=== PATIENT | male | born 1975 | race Caucasian/White ===

== ENCOUNTER 2019-09-13 11:54 | Emergency (ER) | payer OTHER ==
[2019-09-13 13:25] LABS: Absolute Lymphocytes (CBC) 1.3 K/uL (0.7-4.9); Basophils % 0.7 % (0-1.3); Hematocrit 40.7 % (39.6-49.0); Lymphocytes % 22.9 % (15.3-44.8); MPV 7.5 fL (7.6-11.3); RBC Red Blood Cell Count 4.27 M/uL (4.33-5.43)
[2019-09-13 13:39] LABS: ALT/SGPT 60 U/L (12-78); AST/SGOT 117 U/L (15-37); Alkaline Phosphatase 55 U/L (45-117); BUN Blood Urea Nitrogen 15 mg/dL (7-18); Bicarbonate 26 mmol/L (21-32); Bilirubin Direct < 0.1 mg/dL (0-0.2); Bilirubin Total 0.3 mg/dL (0.2-1.0); Glucose Level 101 mg/dL (74-106); Magnesium 2.1 mg/dL (1.8-2.4); NT PRO-BNP 30 pg/mL (<125); Potassium 4.3 mmol/L (3.5-5.1); Protein, Total 7.9 g/dL (6.4-8.2); Sodium Level 139 mmol/L (136-145); Troponin (Emerg Dept Use Only) < 0.02 ng/mL (0.0-0.045)
[2019-09-13 13:48] LABS: Protime INR 0.84
--- NOTE | 2019-09-13 13:54 | RAD REPORT ---
EXAM DESCRIPTION: RAD - Chest Single View - 09/13/2019 1:37 pm CLINICAL HISTORY: Left-sided chest pain COMPARISON: None. TECHNIQUE: AP portable chest image was obtained 1317 hours . FINDINGS: Lungs are clear. Heart and vasculature are normal. No measurable pleural effusion and no p neumothorax. No acute bony abnormality seen. No acute aortic findings suspected. IMPRESSION: No acute cardiopulmonary process.
--- NOTE | 2019-09-13 15:35 | EKG ---
Test Date: 2019-09-13 Test Time: 12:04:21 Platen Drier Operator: SOLITARIO MEASUREMENT RESULTS: Intervals: Rate: 58 MT: 164 QRSD: 80 QT: 390 QTc: 382 [place]: P: 27 MT: 164 QRS: 13 T: 20 INTERPRETIVE STATEMENTS: Sinus bradycardia Otherwise normal ECG No previous ECG available for comparison Electronically Signed On 09-13-19 15:34:17 SOUND DESIGNER by Blaine Israel
--- NOTE | 2019-09-13 16:16 | EDPHYS ---
Physician Documentation [facility] Name: Clifford Ramos Age: 44 yrs Sex: Male : 1975 Arrival Date: 09/13/2019 Time: 11:55 Bed 18 Private MD: ED Physician Cassius Kearney HPI: 09/13 13:10 This 44 yrs old Male presents to ER via Ambulatory with complaints of Chest jr8 Pain, Neck Pain, <24hrs Old, Palpitations. 13:10 The patient or guardian reports chest pain that is located primarily in the substernal jr8 area. Onset: acutely, today. The pain radiates to left neck. Associated signs and symptoms: Pertinent positives: palpitations. The chest pain is described as a pressure. Duration: The patient or guardian reports a single episode, that is still ongoing, but improving. Modifying factors: The symptoms are alleviated by nothing. the symptoms are aggravated by nothing. Severity of pain: At its worst the pain was moderate in the emergency department the pain has improved markedly. The patient has not experienced similar symptoms in the past. The patient has not recently seen a physician. Patient stated that he was walking when he had a sing palpitation followed by sudden pressure in chest that radiated to left neck . Historical: - Allergies: 11:58 No Known Allergies; aa5 - Home Meds: 11:58 None [Active]; aa5 - PMHx: 11:58 None; aa5 - PSHx: 11:58 eye; R shoulder; aa5 - Immunization history:: Flu vaccine is not up to date. - Social history:: Smoking status: Patient uses tobacco products, smokes one-half pack cigarettes per day. - Ebola Screening: : No symptoms or risks identified at this time. ROS: 13:10 Eyes: Negative for injury, pain, redness, and discharge, ENT: Negative for injury, jr8 pain, and discharge, Neck: Negative for injury, pain, and swelling, Abdomen/GI: Negative for abdominal pain, nausea, vomiting, diarrhea, and constipation, Back: Negative for injury and pain, MS/Extremity: Negative for injury and deformity, Skin: Negative for injury, rash, and discoloration, Neuro: Negative for headache, weakness, numbness, tingling, and seizure. 13:10 Cardiovascular: Positive for chest pain, palpitations. 13:10 Respiratory: Positive for shortness of breath. Exam: 13:10 Eyes: Pupils equal round and reactive to light, extra-ocular motions intact. Lids and jr8 lashes normal. Conjunctiva and sclera are non-icteric and not injected. Cornea within normal limits. Periorbital areas with no swelling, redness, or edema. ENT: Nares patent. No nasal discharge, no septal abnormalities noted. Tympanic membranes are normal and external auditory canals are clear. Oropharynx with no redness, swelling, or masses, exudates, or evidence of obstruction, uvula midline. Mucous membranes moist. Neck: Trachea midline, no thyromegaly or masses palpated, and no cervical lymphadenopathy. Supple, full range of motion without nuchal rigidity, or vertebral point tenderness. No Meningismus. Cardiovascular: Regular rate and rhythm with a normal S1 and S2. No gallops, murmurs, or rubs. Normal PMI, no JVD. No pulse deficits. Respiratory: Lungs have equal breath sounds bilaterally, clear to auscultation and percussion. No rales, rhonchi or wheezes noted. No increased work of breathing, no retractions or nasal flaring. Abdomen/GI: Soft, non-tender, with normal bowel sounds. No distension or tympany. No guarding or rebound. No evidence of tenderness throughout. Back: No spinal tenderness. No costovertebral tenderness. Full range of motion. Skin: Warm, dry with normal turgor. Normal color with no rashes, no lesions, and no evidence of cellulitis. MS/ Extremity: Pulses equal, no cyanosis. Neurovascular intact. Full, normal range of motion. Neuro: Awake and alert, GCS 15, oriented to person, place, time, and situation. Cranial nerves II-XII grossly intact. Motor strength 5/5 in all extremities. Sensory grossly intact. Cerebellar exam normal. Normal gait. Vital Signs: 11:59 BP 140 / 91; Pulse 65; Resp 18 S; Temp 98.0(TE); Pulse Ox 98% on R/A; Weight 86.18 kg aa5 (R); Height 5 ft. 10 in. (177.80 cm) (R); Pain 5/10; 13:00 BP 136 / 86; Pulse 51; Resp 15; Pulse Ox 99% on R/A; hb 14:06 BP 139 / 87; Pulse 49; Resp 15; Pulse Ox 99% on R/A; Pain 3/10; hb 11:59 Body Mass Index 27.26 (86.18 kg, 177.80 cm) aa5 MDM: 12:54 Patient medically screened. jr8 16:13 MARIA ANTONIA Risk Score: 1 - Recent [<24hrs] Severe Angina, TOTAL SCORE = 1. Data reviewed: [facility] vital signs, nurses notes, lab test result(s), EKG, radiologic studies, plain films. Data interpreted: Pulse oximetry: on room air is 99 %. Interpretation: normal. Counseling: I had a detailed discussion with the patient and/or guardian regarding: the historical points, exam findings, and any diagnostic results supporting the discharge/admit diagnosis, lab results, radiology results, the need for outpatient follow up, a medicare sales executive, to return to the emergency department if symptoms worsen or persist or if there are any questions or concerns that arise at home. ED course: Patient without any pain at this time. X 2 troponin's, both of which are negative. Will d/c home to f/u with Cardiology in next couple of days. If he were to have pain again to immediately come back for reevaluation and admission . 09/13 12:54 Order name: Basic Metabolic Panel; Complete Time: 13:41 09/13 12:54 Order name: CBC with Diff; Complete Time: 13:30 09/13 12:54 Order name: LFT's; Complete Time: 13:41 09/13 12:54 Order name: Magnesium; Complete Time: 13:41 09/13 12:54 Order name: NT PRO-BNP; Complete Time: 13:41 09/13 12:54 Order name: PT-INR; Complete Time: 14:03 09/13 12:54 Order name: Troponin (emerg Dept Use Only); Complete Time: 13:41 09/13 12:54 Order name: XRAY Chest (1 view); Complete Time: 14:03 09/13 12:54 Order name: EKG; Complete Time: 12:55 09/13 12:54 Order name: Cardiac monitoring; Complete Time: 13:09 09/13 12:54 Order name: EKG - Nurse/Tech; Complete Time: 13:09 09/13 12:54 Order name: IV Saline Lock; Complete Time: 13:09/13 12:54 Order name: Labs collected and sent; Complete Time: 09/13 15:15 Order name: Troponin (emerg Dept Use Only); Complete Time: 16:09/13 12:54 Order name: O2 Per Protocol; Complete Time: :09/13 12:54 Order name: O2 Sat Monitoring; Complete Time: : Administered Medications: No medications were administered Disposition: 09/13/19 16:15 Discharged to Home. Impression: Chest pain, unspecified, Palpitations. - Condition is Stable. - Discharge Instructions: Nonspecific Chest Pain, Palpitations. - Medication Reconciliation Form, Thank You Letter, Antibiotic Education, Prescription Opioid Use form. - Follow up: Jorgito Rubio MD; When: 2 - 3 days; Reason: Recheck today's complaints, Continuance of care, Re-evaluation by your physician. - Problem is new. - Symptoms are resolved. Addendum: 09/16/2019 08:21 Co-signature as Attending Physician, Cassius Kearney MD I agree with the assessment and c abdullahi plan of care. Signatures: Dispatcher [employer] EDAR Cassius Kearney MD MD cha Calderon, Audri, RN RN aa5 Gordon Zambrano PA PA jr8 Lakeisha Dickinson, CIERRA RN hb Corrections: (The following items were deleted from the chart) 09/13 16:59 16:15 09/13/2019 16:15 Discharged to Home. Impression: Chest pain, unspecified; hb Palpitations. Condition is Stable. Forms are Medication Reconciliation Form, Thank You Letter, Antibiotic Education, Prescription Opioid Use. Follow up: Jorgito Rubio; When: 2 - 3 days; Reason: Recheck today's complaints, Continuance of care, Re-evaluation by your physician. Problem is new. Symptoms are resolved. jr8
--- NOTE | 2019-09-13 16:16 | ER ---
Nurse's Notes [facility] Name: Clifford Ramos Age: 44 yrs Sex: Male : 1975 Arrival Date: 09/13/2019 Time: 11:55 Bed 18 Private MD: Diagnosis: Chest pain, unspecified;Palpitations Presentation: 09/13 11:58 Presenting complaint: Patient states: "I was just walking and started having chest aa5 pain". Pt reports left sided chest pain and SOB that began just ANIMAL STICKER. Transition of care: patient was not received from another setting of care. Onset of symptoms was September 13, 2019. Risk Assessment: Do you want to hurt yourself or someone else? Patient reports no desire to harm self or others. Initial Sepsis Screen: Does the patient meet any 2 criteria? No. Patient's initial sepsis screen is negative. Does the patient have a suspected source of infection? No. Patient's initial sepsis screen is negative. Care prior to arrival: None. 11:58 Acuity: JOANNA 3 aa5 11:58 Method Of Arrival: Ambulatory aa5 Historical: - Allergies: 11:58 No Known Allergies; aa5 - Home Meds: 11:58 None [Active]; aa5 - PMHx: 11:58 None; aa5 - PSHx: 11:58 eye; R shoulder; aa5 - Immunization history:: Flu vaccine is not up to date. - Social history:: Smoking status: Patient uses tobacco products, smokes one-half pack cigarettes per day. - Ebola Screening: : No symptoms or risks identified at this time. Screenin:00 Abuse screen: Denies threats or abuse. Denies injuries from another. Nutritional hb screening: No deficits noted. Tuberculosis screening: No symptoms or risk factors identified. Fall Risk None identified. Assessment: 13:00 General: Appears in no apparent distress. Behavior is calm, cooperative. Pain: hb Complains of pain in chest Pain radiates to left arm and neck Pain currently is 5 out of 10 on a pain scale. Pain began suddenly. Neuro: Level of Consciousness is awake, alert, obeys commands, Oriented to person, place, time, situation. Cardiovascular: Heart tones S1 S2 present Capillary refill < 3 seconds Patient's skin is warm and dry. Respiratory: Airway is patent Respiratory effort is even, unlabored, Respiratory pattern is regular, symmetrical, Breath sounds are clear bilaterally. GI: No signs and/or symptoms were reported involving the gastrointestinal system. : No signs and/or symptoms were reported regarding the genitourinary system. EENT: No signs and/or symptoms were reported regarding the EENT system. Derm: Skin is pink, warm \\T\\ dry. Musculoskeletal: No signs and/or symptoms reported regarding the musculoskeletal system. 14:00 Reassessment: Patient appears in no apparent distress at this time. Patient and/or hb family updated on plan of care and expected duration. Pain level reassessed. Patient is alert, oriented x 3, equal unlabored respirations, skin warm/dry/pink. Vital Signs: 11:59 BP 140 / 91; Pulse 65; Resp 18 S; Temp 98.0(TE); Pulse Ox 98% on R/A; Weight 86.18 kg aa5 (R); Height 5 ft. 10 in. (177.80 cm) (R); Pain 5/10; 13:00 BP 136 / 86; Pulse 51; Resp 15; Pulse Ox 99% on R/A; hb 14:06 BP 139 / 87; Pulse 49; Resp 15; Pulse Ox 99% on R/A; Pain 3/10; hb 11:59 Body Mass Index 27.26 (86.18 kg, 177.80 cm) aa5 ED Course: 11:55 Patient arrived in ED. as 11:58 Arm band placed on. aa5 11:59 Triage completed. aa5 12:02 EKG completed in triage. Results shown to MD. aa5 12:54 Gordon Zambrano PA is PHCP. jr8 12:54 Cassius Kearney MD is Attending Physician. jr8 13:00 Patient has correct armband on for positive identification. Placed in gown. Bed in low hb position. Call light in reach. Side rails up X 1. property assessment monitor on. Pulse ox on. NIBP on. 13:02 Inserted saline lock: 20 gauge in right antecubital area, using aseptic technique. hb Blood collected. Patient maintains SpO2 saturation greater than 95% on room air. 13:03 Lakeisha Dickinson, RN is Primary Nurse. hb 13:38 XRAY Chest (1 view) In Process Unspecified. EDMS 15:29 Troponin (emerg Dept Use Only) Sent. ss 16:15 Baradhi, Jorgito, MD is Referral Physician. jr8 16:35 IV discontinued, intact, bleeding controlled, No redness/swelling at site. Pressure hb dressing applied. 16:35 No provider procedures requiring assistance completed. hb Administered Medications: No medications were administered Outcome: 16:15 Discharge ordered by MD. jr8 16:35 Discharged to home ambulatory, with significant other. hb 16:35 Condition: stable hb 16:35 Discharge instructions given to patient, significant other, Instructed on discharge instructions, follow up and referral plans. medication usage, Demonstrated understanding of instructions, follow-up care, medications. 16:59 Patient left the ED. hb Signatures: Dispatcher [employer] EDMS Wilma Banda Audri, RN RN aa5 Marilyn Appiah RN RN Gordon Zambrano PA PA jr8 Lakeisha Dickinson, CIRERA RN hb
[2019-09-13 17:52] VITALS: TEMP 98
[2019-09-13 17:54] VITALS: O2SAT 99
[2019-09-13 17:55] VITALS: BP 139/87
== END 2019-09-13 16:59 | disposition home or self-care (01) ==
LOC: ER 11:54
DX: R00.2 Palpitations (principal); F17.210 Nicotine dependence, cigarettes, uncomplicated
CPT/HCPCS: 36415; 71045; 80048; 80076; 83735; 83880; 84484; 85025; 85610; 93005; 99285

== ENCOUNTER 2022-11-02 07:27 | Day surgery (SDC) | payer BC ==
[2022-11-01 09:43] LABS: Absolute Lymphocytes (CBC) 1.5 K/uL (0.7-4.9); Hematocrit 38.4 % (39.6-49.0); Lymphocytes % 22.2 % (15.3-44.8); MCV 97.2 fL (80-100); MPV 6.7 fL (7.6-11.3); RBC Red Blood Cell Count 3.96 M/uL (4.33-5.43)
[2022-11-01 10:00] LABS: Potassium 3.8 mmol/L (3.5-5.1)
--- NOTE | 2022-11-01 12:48 | EKG ---
Test Date: 2022-11-01 Test Time: 09:25:26 Director Audience Marketing: ANTHONY MEASUREMENT RESULTS: Intervals: Rate: 77 NV: 172 QRSD: 94 QT: 358 QTc: 405 [place]: P: 58 NV: 172 QRS: -18 T: 73 INTERPRETIVE STATEMENTS: Normal sinus rhythm Normal ECG Compared to ECG 09/13/2019 12:04:21 Sinus bradycardia no longer present Electronically Signed On 11-01-22 12:47:40 MONOGRAM TECHNICIAN by Godfrey Landry
--- NOTE | 2022-11-01 13:10 | RAD REPORT ---
[facility]AM DES[facility]01/2022 9:43 am CLINICAL HISTORY: pre op cyst removal COMPARISON: Chest Pa And Lat (2 Views) dated 01/26/2021; Chest Single View dated 09/13/2019 TECHNIQUE: PA and lateral views of the chest. FINDINGS: The lungs are clear. No pneumothorax or effusion. The cardiomediastinal contours are unrem arkable. IMPRESSION: No acute cardiopulmonary process.
[2022-11-02] MEDS ORDERED: Ringers Lactate 1,000 ML IV ONE (07:40)
[2022-11-02] MEDS ORDERED: FENTANYL CITR 100 MCG/2 ML ONE (08:29)
[2022-11-02] MEDS ORDERED: propofoL 200 MG/20 ML VIAL IV ONE (08:31)
[2022-11-02] MEDS ORDERED: MIDAZOLAM HCL 2 MG/2 ML INJ ONE (08:31)
[2022-11-02] MEDS ORDERED: LIDOCAINE 2% MPF 5 ML VIAL ONE (08:31)
[2022-11-02] MEDS ORDERED: ONDANSETRON 4 MG/2 ML VIAL ONE (08:32)
[2022-11-02] MEDS: CEFAZOLIN SODIUM 1 GM/VIAL ONE ×2 (09:20→09:30)
--- NOTE | 2022-11-02 10:34 | P.BOP ---
Preoperative diagnosis: infected subQ mass on the scrotum Postoperative diagnosis: same Primary procedure: Excisional biospy of infected subQ mass on the scrotum 3x3cm Estimated blood loss: <10cc Specimen: mass Findings: see dicta Anesthesia: General Complications: None Transferred to: Recovery Room Condition: Good
[2022-11-02] MEDS ORDERED: HYDROCODONE/APAP 5/325 MG TAB ONE (10:57)
[2022-11-02 13:13] VITALS: BP 130/91; TEMP 97.5; O2SAT 99
--- NOTE | 2022-11-02 22:29 | OP ---
Date of Procedure: 11/02/2022 Surgeon: Patel Banda MD Preoperative Diagnosis: Infected subcutaneous mass in the scrotum. Postoperative Diagnosis: Infected subcutaneous mass in the scrotum. Procedure: Excisional biopsy of infected subcutaneous mass in the scrotum, 3 x 3 cm. Estimated Blood Loss: Less than 10 cc. Findings: The patient has a subcutaneous mass in the wall of that scrotum, does not go inside the sc rotum and does not seem to be connected to any other structure inside the scrotum. Anesthesia: General plus local. Complications: None. Indications: This is a case of a 47-year-old patient who comes to us with a scrotal mass infected on and off. The patient is seen by the primary doctor, found to have the mass not inside the scrotum, but in the subcutaneous tissue of the scrotal wall, so a surgical consult was obtained for excision s benny on and off, it is getting infected. The benefits, alternatives, and risks of excision were full y explained which include, but not limited to infection, bleeding, damage to adjacent structures, ane sthesia complication, recurrence, DC, and even . He also understands this may not relieve any s ymptoms and he might need more than one surgical intervention. He understood, signed a consent. The area of concern was marked by me and the patient in the holding room. Procedure In Detail: The patient was brought to the OR and placed in supine position. Anesthesia wa s given without complication. A time-out was called. The scrotal area was prepped and draped in the usual sterile fashion. Local anesthetic was applied followed by a wedge incision on the skin. Inci esmer was carried down to the subcutaneous tissue. This seems to be on the scrotal wall. We were abl e to delineate that area, remove the mass and then irrigated the subcutaneous area, closed the subcut aneous area with 3-0 chromic and the skin with nylon. Sponge count and instrument counts were correc t. Specimen sent for pathology evaluation. The area was covered with sterile dressings. The patien t was sent to recovery in stable condition. MABEL/MODL Voice ID: [id number] Report ID: [id number]
--- NOTE | 2022-11-02 22:35 | DS ---
Date of Discharge: 11/02/2022 Diagnosis: Infected subcutaneous mass in the scrotum. Procedure: Excisional biopsy of infected scrotal subcutaneous mass. Disposition: Home. Discharge Instructions: Keep the area dry for 24 hours then after that, clean with soap and water. Apply triple antibiotics and gauze. Use scrotal support. We will see the patient in my office in a week. SUDARSHAN Voice ID: [id number] Report ID: [id number]
== END 2022-11-02 11:45 | disposition home or self-care (01) ==
LOC: OR 07:27
PROVIDERS: ATTEND Surgery
PROC: 0VB50ZZ Excision of Scrotum, Open Approach (ICD-10-PCS; principal; 2022-11-02 09:15)
DX: L72.0 Epidermal cyst (principal); F17.210 Nicotine dependence, cigarettes, uncomplicated
CPT/HCPCS: 93005; 85025; 80048; 36415; 88305; 71046; 55899; J2704; J2001; J2250; J3010; J7120; J2405; J0690; 88304

== ENCOUNTER → 2023-11-01 | Emergency (ER) | payer BC ==
[~2023-11-01] MED LIST: LIDOCAINE 1% 20 ML MDV ONE
--- NOTE | 2023-11-01 19:45 | RAD REPORT ---
EXAM DESCRIPTION: RAD - Hand Left 3 View - 11/01/2023 7:30 pm CLINICAL HISTORY: PAIN COMPARISON: No comparisons FINDINGS: Soft tissue swelling is seen along the posterior aspect of the hand. No foreign body. No s oft tissue gas.
--- NOTE | 2023-11-01 20:16 | EDPHYS ---
Physician Documentation [facility] Name: Clifford Ramos Age: 48 yrs Sex: Male : 1975 Arrival Date: 11/01/2023 Time: 17:31 Bed 13 Private MD: Petr Garcia B ED Physician Padma Reyna HPI: 11/01 20:17 This 48 yrs old Male presents to ER via Wheelchair with complaints of Laceration To kb Hand. 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 Historical: - Allergies: 18:46 No Known Allergies; bp - Immunization history:: Adult Immunizations unknown. - Social history:: Smoking status: Patient denies any tobacco usage or history of. ROS: 20:15 Constitutional: Negative for fever, chills, and weight loss, kb 20:15 Skin: Positive for laceration(s), swelling, of the dorsum of left hand, 20:15 All other systems are negative, Exam: 20:16 Constitutional: This is a well developed, well nourished patient who is awake, alert, kb and in no acute distress. Head/Face: Normocephalic, atraumatic. ENT: Moist Mucous membranes Cardiovascular: Regular rate Respiratory: Respirations even and unlabored. No increased work of breathing. Talking in full sentences MS/ Extremity: Pulses equal, no cyanosis. Neurovascular intact. Full, normal range of motion. Neuro: Awake and alert, GCS 15, oriented to person, place, time, and situation. Moves all extremities. Normal gait. 20:16 Skin: injury, laceration(s), the wound is approximately 3 cm(s), of the dorsum of left hand, that can be described as clean, no foreign body, linear, with moderate bleeding, Vital Signs: 18:54 BP 141 / 83; Pulse 81; Resp 18; Temp 97.5(TE); Pulse Ox 97% on R/A; ld1 18:54 Pain 9/10; ld1 18:54 Pain Scale: Adult ld1 Laceration: 20:13 Wound Repair of 3cm ( 1.2in ) subcutaneous laceration to left hand. Linear shaped.. kb Distal neuro/vascular/tendon intact. Anesthesia: Local anesthetic administered with 2 mls of 1% lidocaine. Wound prep: Extensive cleansing with hibiclenz by me, Wound irrigation with saline by me. Skin closed with 6 4-0 Prolene using simple sutures and sterile technique. Patient tolerated well. MDM: 17:36 Patient medically screened. kb 20:16 Differential diagnosis: superficial laceration, tendon injury, vascular injury. Data kb reviewed: vital signs, nurses notes. Management of patient was discussed with the following: Dr Reyna. Counseling: I had a detailed discussion with the patient and/or guardian regarding the historical points, exam findings, and any diagnostic results supporting the discharge/admit diagnosis, radiology results, the need for outpatient follow up, a family practitioner, to return to the emergency department if symptoms worsen or persist or if there are any questions or concerns that arise at home. 20:16 ED course: Full ROM of all fingers, full sensation. Bleeding controlled after sutures kb placed. 11/01 17:57 Order name: Hand Left 3 View XRAY; Complete Time: 19:53 kb 11/01 19:04 Order name: Dressing - Wound; Complete Time: 19:49 kb 11/01 19:04 Order name: Gloves, Sterile; Complete Time: 19:49 kb 11/01 19:04 Order name: Prolene, Sutures; Complete Time: 19:49 kb 11/01 19:04 Order name: Setup Suture Tray; Complete Time: 19:49 kb Administered Medications: 20:23 Drug: Lidocaine Infiltration (1 %) 1 vials 5 ml Infiltration once; to bedside {Note: rv administered by Sybil SON.} Volume: 5 ml; Route: Infiltration; Disposition Summary: 11/01/23 20:15 Discharge Ordered Notes: Location: Home kb Condition: Stable kb Diagnosis - Laceration without foreign body of left hand kb Followup: kb - With: Emergency Department - When: As needed - Reason: Worsening of condition Followup: kb - With: Private Physician - When: 2 - 3 days - Reason: Recheck today's complaints, Continuance of care, Re-evaluation by your physician Discharge Instructions: - Discharge Summary Sheet kb - Laceration Care, Adult, [id number] kb Forms: - Medication Reconciliation Form kb - Thank You Letter kb - Antibiotic Education kb - Prescription Opioid Use kb - Patient Portal Instructions kb - Leadership Thank You Letter kb Signatures: Dispatcher [employer] EDMS Laron, Sybil, INTERNAL WHOLESALER-C INTERNAL WHOLESALER-Rashawn Nathan, RN RN bp Aries Blevins, RN RN rv
--- NOTE | 2023-11-01 20:16 | ER ---
Nurse's Notes [facility] Name: Clifford Ramos Age: 48 yrs Sex: Male : 1975 Arrival Date: 11/01/2023 Time: 17:31 Bed 13 Private MD: Petr Garcia B Diagnosis: Laceration without foreign body of left hand Presentation: 11/01 17:35 Chief complaint: Patient states: LEFT HAND LAC. Coronavirus screen: At this time, the bp client does not indicate any symptoms associated with coronavirus-19. Ebola Screen: No symptoms or risks identified at this time. Complicating Factors: There are no complicating factors for this patient. Initial Sepsis Screen: Does the patient meet any 2 criteria? No. Patient's initial sepsis screen is negative. Does the patient have a suspected source of infection? No. Patient's initial sepsis screen is negative. Risk Assessment: Do you want to hurt yourself or someone else? Patient reports no desire to harm self or others. Onset of symptoms was November 01, 2023 at 17:00. 17:35 Method Of Arrival: Wheelchair bp 17:35 Acuity: JOANNA 3 bp Triage Assessment: 17:35 General: Appears distressed, uncomfortable, Behavior is cooperative, appropriate for bp age, anxious. Pain: Complains of pain in left hand. Injury Description: Laceration sustained to left hand is jagged, 7.6 to 20 cm long, bleeding moderately. Historical: - Allergies: 18:46 No Known Allergies; bp - Immunization history:: Adult Immunizations unknown. - Social history:: Smoking status: Patient denies any tobacco usage or history of. Screenin:35 [facility] ED Fall Risk Assessment (Adult) History of falling in the last 3 months, bp including since admission No falls in past 3 months (0 pts). Abuse screen: Denies threats or abuse. Denies injuries from another. Nutritional screening: No deficits noted. Tuberculosis screening: No symptoms or risk factors identified. Assessment: 17:35 General: SEE TRIAGE NOTE. bp Vital Signs: 18:54 BP 141 / 83; Pulse 81; Resp 18; Temp 97.5(TE); Pulse Ox 97% on R/A; ld1 18:54 Pain 9/10; ld1 18:54 Pain Scale: Adult ld1 ED Course: 17:33 Patient arrived in ED. mr 17:33 Petr Garcia MD is Private Physician. mr 17:35 Rashawn Gilliland, RN is Primary Nurse. bp 17:35 Arm band placed on. bp 17:35 Patient has correct armband on for positive identification. bp 17:36 Sybil Larry FNP-C is PHCP. kb 17:36 Padma Reyna MD is Attending Physician. kb 18:46 Triage completed. bp 19:32 Hand Left 3 View XRAY In Process Unspecified. EDMS 20:24 Assist provider with laceration repair on left hand that was 2.5 cm. or less using rv sutures. Set up tray. Performed by Sybil FERGUSON Dressed with pressure dressing Patient tolerated well. Patient did not have IV access during this emergency room visit. Administered Medications: 20:23 Drug: Lidocaine Infiltration (1 %) 1 vials 5 ml Infiltration once; to bedside {Note: rv administered by Sybil SON.} Volume: 5 ml; Route: Infiltration; Medication: 17:35 VIS not applicable for this client. bp Outcome: 20:15 Discharge ordered by MD. kb 20:24 Discharged to home ambulatory, with family, rv 20:24 Condition: good 20:24 Discharge instructions given to patient, Instructed on discharge instructions, follow up and referral plans. Demonstrated understanding of instructions, follow-up care, wound care, 20:25 Patient left the ED. rv Signatures: Dispatcher [employer] EDAZ Sybil Larry FNP-C PASTRY ASSISTANT-Ckb HendrixVira, Reg Reg mr Rashawn Gilliland, RN RN bp Aries Blevins, RN RN rv Cammie Perry RN RN ld1
[2023-11-01 20:46] VITALS: BP 141/83; TEMP 97.5; O2SAT 97
== END ==
LOC: ER 17:31
PROC: 0HQGXZZ Repair Left Hand Skin, External Approach (ICD-10-PCS; principal; 2023-11-01)
DX: S61.412A Laceration without foreign body of left hand, initial encounter (principal)
CPT/HCPCS: 73130; 12002; J2001

== ENCOUNTER → 2023-11-08 | Emergency (ER) | payer BC ==
[~2023-11-08] MED LIST changes: +CEFAZOLIN SODIUM 1 GM/VIAL ONE; +CLINDAMYCIN 600MG/D5W 50 ML IV ONE; -LIDOCAINE 1% 20 ML MDV ONE; +NA CHLORIDE 0.9% 100 ML ONE
--- NOTE | 2023-11-08 15:28 | EDPHYS ---
Physician Documentation [facility] Name: Clifford Ramos Age: 48 yrs Sex: Male : 1975 Arrival Date: 11/08/2023 Time: 13:47 Bed DX1 Private MD: ED Physician Camilo Bustillo HPI: 11/07 14:52 This 48 yrs old Male presents to ER via Unassigned with complaints of Stab Wound - kb Infection. 14:52 Patient is a 48-year-old male who sustained a laceration to dorsal aspect of left hand kb 1 week ago. Patient came to the ED for laceration repair. Laceration cleaned and sutures placed by me. Patient comes back today for increased pain, tenderness that radiates up the forearm. States he wanted to make sure it was not infected. Patient was on an unknown antibiotic at the time of laceration for an upper respiratory infection and completed those antibiotics 2 days ago.. Historical: - Allergies: 14:56 No Known Allergies; tl4 - Home Meds: 14:56 None [Active]; tl4 - PMHx: 14:56 None; tl4 - Immunization history:: Adult Immunizations up to date. - Social history:: Smoking status: Patient denies any tobacco usage or history of. ROS: 14:50 Constitutional: As per HPI kb 14:50 MS/extremity: Positive for pain, swelling, tenderness, of the left hand, 14:50 Skin: Positive for laceration(s), of the dorsum of left hand, With sutures in place, 14:50 All other systems are negative, Exam: 14:50 Constitutional: This is a well developed, well nourished patient who is awake, alert, kb and in no acute distress. Head/Face: Normocephalic, atraumatic. ENT: Moist Mucous membranes Cardiovascular: Regular rate Respiratory: Respirations even and unlabored. No increased work of breathing. Talking in full sentences MS/ Extremity: Pulses equal, no cyanosis. Neurovascular intact. Full, normal range of motion. Neuro: Awake and alert, GCS 15, oriented to person, place, time, and situation. Moves all extremities. Normal gait. 14:50 Skin: Wound recheck: Suture laceration closure: the wound is healing well, the edges are well approximated, no evidence of dehiscence, no drainage, no erythema, mild swelling, Vital Signs: 14:51 BP 130 / 82; Pulse 82; Resp 16; Temp 97.3; Pulse Ox 99% on R/A; Weight 81.65 kg; Height tl4 5 ft. 9 in. ; Pain 9/10; 15:15 BP 143 / 77; Pulse 75; Resp 18; Temp 98; Pulse Ox 97% ; kb3 14:51 Body Mass Index 26.58 (81.65 kg, 175.26 cm) tl4 14:51 Pain Scale: Adult tl4 MDM: 13:51 Patient medically screened. kb 14:51 Data reviewed: vital signs, nurses notes. ED course: Swelling to left hand has kb decreased since I placed the sutures [address] Bustillo evaluated the patient as well and recommends a dose of IV antibiotics and discharged on oral antibiotics due to patient's tenderness to hand and forearm.. 15:27 Differential Diagnosis cellulitis, wound infection, abscess. Counseling: I had a kb detailed discussion with the patient and/or guardian regarding the historical points, exam findings, and any diagnostic results supporting the discharge/admit diagnosis, the need for outpatient follow up, a hand specialist, to return to the emergency department if symptoms worsen or persist or if there are any questions or concerns that arise at home. 11/07 14:30 Order name: IV Start; Complete Time: 14:41 kb Administered Medications: 14:49 Drug: ceFAZolin IVPB 1 grams IVPB once Route: IVPB; Site: left antecubital; bp 15:34 Follow up: Response: No adverse reaction; IV Status: Completed infusion; IV Intake: [id number] 15:15 Drug: Clindamycin IVPB 600 mg IVPB once over 30 mins; (mix in 50 mL) Route: IVPB; bp Infused Over: 30 mins; Site: left antecubital; 15:33 Follow up: Response: No adverse reaction; IV Status: Completed infusion; IV Intake: kb3 100ml Disposition Summary: 11/08/23 15:27 Discharge Ordered Notes: Location: Home kb Condition: Stable kb Diagnosis - Laceration without foreign body of left hand kb - Local infection of the skin and subcutaneous tissue, unspecified kb Followup: kb - With: Emergency Department - When: As needed - Reason: Worsening of condition Followup: kb - With: Private Physician - When: 2 - 3 days - Reason: Recheck today's complaints, Continuance of care, Re-evaluation by your physician Discharge Instructions: - Discharge Summary Sheet kb - Laceration Care, Adult, [id number] kb - Wound Infection, [id number] kb Forms: - Medication Reconciliation Form kb - Thank You Letter kb - Antibiotic Education kb - Prescription Opioid Use kb - Patient Portal Instructions kb - Leadership Thank You Letter kb - Work release form kb3 Prescriptions: - Cephalexin 500 mg Oral Capsule - take 1 capsule ORAL route every 8 hours for 10 days; 30 capsule; Refills: 0, kb Product Selection Permitted - Clindamycin HCl 300 mg Oral Capsule - take 1 capsule ORAL route every 6 hours for 10 days; 40 capsule; Refills: 0, kb Product Selection Permitted Addendum: 11/13/2023 06:57 Co-signature as Attending Physician, Camilo Bustillo MD I reviewed the patient's care r n provided by the Advanced Practice Provider and agree with the diagnosis and treatment plan. Signatures: Sybil Larry, ELECTRIC STOVE MECHANIC-C ELECTRIC STOVE MECHANIC-Ckb Camilo Bustillo MD MD rn Peltier, Brian RN RN Juan F Grant RN RN tl4 Mildred Roldan RN kb3
--- NOTE | 2023-11-08 15:28 | ER ---
Nurse's Notes [facility] Name: Clifford Ramos Age: 48 yrs Sex: Male : 1975 Arrival Date: 11/08/2023 Time: 13:47 Bed DX1 Private MD: Diagnosis: Laceration without foreign body of left hand;Local infection of the skin and subcutaneous tissue, unspecified Presentation: 11/07 14:51 Chief complaint: Patient states: Pt c/o increased pain, swelling and redness to sutured tl4 wound on posterior left hand. Coronavirus screen: At this time, the client does not indicate any symptoms associated with coronavirus-19. Ebola Screen: No symptoms or risks identified at this time. Initial Sepsis Screen: Does the patient meet any 2 criteria? No. Patient's initial sepsis screen is negative. Does the patient have a suspected source of infection? No. Patient's initial sepsis screen is negative. Risk Assessment: Do you want to hurt yourself or someone else? Patient reports no desire to harm self or others. Onset of symptoms was November 01, 2023. 14:51 Method Of Arrival: Ambulatory tl4 14:51 Acuity: JOANNA 3 tl4 Triage Assessment: 14:56 General: Appears uncomfortable, Behavior is calm, cooperative. Pain: Complains of pain tl4 in left hand. EENT: No deficits noted. No signs and/or symptoms were reported regarding the EENT system. Neuro: No deficits noted. Cardiovascular: No deficits noted. Respiratory: No deficits noted. GI: No deficits noted. No signs and/or symptoms were reported involving the gastrointestinal system. : No deficits noted. No signs and/or symptoms were reported regarding the genitourinary system. Derm: No deficits noted. No signs and/or symptoms reported regarding the dermatologic system. Musculoskeletal: Reports pain in left hand. Historical: - Allergies: 14:56 No Known Allergies; tl4 - Home Meds: 14:56 None [Active]; tl4 - PMHx: 14:56 None; tl4 - Immunization history:: Adult Immunizations up to date. - Social history:: Smoking status: Patient denies any tobacco usage or history of. Screenin:49 [facility] ED Fall Risk Assessment (Adult) History of falling in the last 3 months, bp including since admission No falls in past 3 months (0 pts). Abuse screen: Denies threats or abuse. Denies injuries from another. Nutritional screening: No deficits noted. Tuberculosis screening: No symptoms or risk factors identified. Assessment: 14:49 General: DC ON HOLD FOR IV ABX. bp 15:15 General: Appears in no apparent distress. Behavior is calm, cooperative. Pain: kb3 Complains of pain in left hand. Injury Description: Laceration Laceration to left hand was sutured 1 week ago, reports increased pain and swelling since yesterday. Laceration with intact sutures in place. No drainage noted. Swelling to dorsum of left hand noted with mild redness around incision. Vital Signs: 14:51 BP 130 / 82; Pulse 82; Resp 16; Temp 97.3; Pulse Ox 99% on R/A; Weight 81.65 kg; Height tl4 5 ft. 9 in. ; Pain 9/10; 15:15 BP 143 / 77; Pulse 75; Resp 18; Temp 98; Pulse Ox 97% ; kb3 14:51 Body Mass Index 26.58 (81.65 kg, 175.26 cm) tl4 14:51 Pain Scale: Adult tl4 ED Course: 13:49 Patient arrived in ED. mg5 13:51 Sybil Larry FNP-C is PHCP. kb 13:51 Camilo Bustillo MD is Attending Physician. kb 13:53 Sybil Larry FNP-C is PHCP. kb 14:41 Rashawn Gilliland, RN is Primary Nurse. bp 14:49 Inserted saline lock: 22 gauge in left antecubital area, using aseptic technique. bp 14:49 Patient has correct armband on for positive identification. bp 14:56 Triage completed. tl4 15:40 No provider procedures requiring assistance completed. IV discontinued, intact, kb3 bleeding controlled, No redness/swelling at site. Pressure dressing applied. 15:40 Patient has correct armband on for positive identification. Provided Education on: kb3 Wound care, PO antibiotics, Tylenol and ibuprofen as needed for pain. Administered Medications: 14:49 Drug: ceFAZolin IVPB 1 grams IVPB once Route: IVPB; Site: left antecubital; bp 15:34 Follow up: Response: No adverse reaction; IV Status: Completed infusion; IV Intake: [id number] 15:15 Drug: Clindamycin IVPB 600 mg IVPB once over 30 mins; (mix in 50 mL) Route: IVPB; bp Infused Over: 30 mins; Site: left antecubital; 15:33 Follow up: Response: No adverse reaction; IV Status: Completed infusion; IV Intake: kb3 100ml Medication: 14:49 VIS not applicable for this client. bp Intake: 15:33 IV: 100ml; Total: 100ml. kb3 15:34 IV: 50ml; Total: 150ml. kb3 Outcome: 15:27 Discharge ordered by MD. kb 15:40 Discharged to home ambulatory, kb3 15:40 Condition: stable 15:40 Discharge instructions given to patient, Instructed on discharge instructions, follow up and referral plans. medication usage, Demonstrated understanding of instructions, follow-up care, medications, Prescriptions given X 2, 15:54 Patient left the ED. kb3 Signatures: Sybil Larry, MUSEUM ATTENDANT-C MUSEUM ATTENDANT-CkRashawn Goode, RN RN bp Mildred Roldan, RN RN kb3 Carine Melchor mg5 Juan F Kelley RN RN tl4
[2023-11-08 16:20] VITALS: BP 143/77; TEMP 98; O2SAT 97
== END ==
LOC: ER 13:47
DX: L08.9 Local infection of the skin and subcutaneous tissue, unspecified (principal); S61.412S Laceration without foreign body of left hand, sequela
CPT/HCPCS: 96365; 99284; J0690

== ENCOUNTER → 2023-11-15 | Emergency (ER) | payer BC ==
--- NOTE | 2023-11-15 04:18 | EDPHYS ---
Physician Documentation [facility] Name: Clifford Ramos Age: 48 yrs Sex: Male : 1975 Arrival Date: 11/15/2023 Time: 04:02 Bed IW1 Private MD: ED Physician Chacorta Ramos HPI: 11/14 04:09 This 48 yrs old Male presents to ER via Unassigned with complaints of Suture sp4 Removal. 04:09 Presents for suture removal from the left dorsal hand. sp4 04:10 Sutures were applied at 11/01/2023 . sp4 Historical: - Allergies: 04:20 No Known Allergies; lg3 - Home Meds: 04:20 None [Active]; lg3 - PMHx: 04:20 None; lg3 - PSHx: 04:20 back; shoulder; hand; lg3 - Immunization history:: Adult Immunizations up to date, Client reports receiving the 2nd dose of the Covid vaccine, Flu vaccine is not up to date. - Social history:: Smoking status: Patient reports the use of cigarette tobacco products, smokes one-half pack cigarettes per day, Patient uses alcohol, on a daily basis. - Family history:: not pertinent. ROS: 04:11 Constitutional: Negative for fever, chills, and weight loss, Skin: left hand laceration sp4 in healing stages 04:11 All other systems are negative, Exam: 04:11 Constitutional: This is a well developed, well nourished patient who is awake, alert, sp4 and in no acute distress. Head/Face: Normocephalic, atraumatic. Eyes: Pupils equal round and reactive to light, extra-ocular motions intact. Lids and lashes normal. Conjunctiva and sclera are not injected. Cornea within normal limits. Periorbital areas with no swelling, redness, or edema. ENT: Nares patent. No nasal discharge, no septal abnormalities noted. Tympanic membranes are normal and external auditory canals are clear. Oropharynx with no redness, swelling, or masses, exudates, or evidence of obstruction, uvula midline. Mucous membranes moist. Neck: Trachea midline, no thyromegaly or masses palpated, and no cervical lymphadenopathy. Supple, full range of motion without nuchal rigidity, or vertebral point tenderness. Chest/axilla: Normal chest wall appearance and motion. Nontender with no deformity. No lesions are appreciated. Cardiovascular: Regular rate and rhythm with a normal S1 and S2. No gallops, murmurs, or rubs. Normal PMI, no JVD. No pulse deficits. Respiratory: Lungs have equal breath sounds bilaterally, clear to auscultation and percussion. No rales, rhonchi or wheezes noted. No increased work of breathing, no retractions or nasal flaring. Abdomen/GI: Soft, with normal bowel sounds. No distension or tympany. No guarding or rebound. No evidence of tenderness throughout. Back: No spinal tenderness. No costovertebral tenderness. Skin: Warm, dry with normal turgor. Normal color with no rashes, no lesions, and no evidence of cellulitis. MS/ Extremity: Pulses equal, no cyanosis. Neurovascular intact. Full, normal range of motion. left dorsal hand laceration in healing stages. Neuro: Awake and alert, GCS 15, oriented to person, place, time, and situation. Cranial nerves II-XII grossly intact. Motor strength 5/5 in all extremities. Sensory grossly intact. Psych: Awake, alert, with orientation to person, place and time. Behavior, mood, and affect are within normal limits Vital Signs: 04:19 BP 139 / 82; Pulse 97; Resp 17 S; Temp 97.9(TE); Pulse Ox 98% on R/A; Weight 81.65 kg lg3 (R); Height 5 ft. 9 in. (R); Pain 0/10; 04:19 Body Mass Index 26.58 (81.65 kg, 175.26 cm) lg3 04:19 Pain Scale: Adult lg3 Procedures: 04:11 Suture/Staple removal: Removed 6 sutures, from dorsum of left hand, site appears well sp4 healed, dressed with gauze bandage, steri strips . Patient tolerated well, suture removed . MDM: 04:11 Data reviewed: vital signs, nurses notes, old medical records. ED course: Uterus sp4 removed patient stable for discharge home. 04:17 Patient medically screened. sp4 Administered Medications: No medications were administered Disposition Summary: 11/15/23 04:17 Discharge Ordered Notes: Location: Home sp4 Problem: new sp4 Symptoms: have improved sp4 Condition: Stable sp4 Diagnosis - Laceration without foreign body of left hand sp4 - Encounter for removal of sutures sp4 Followup: sp4 - With: Private Physician - When: 10 - 14 days - Reason: Recheck today's complaints Discharge Instructions: - Discharge Summary Sheet sp4 - Laceration Care, Adult sp4 Signatures: Laney Peterson RN RN lg3 Chacorta Ramos MD MD sp4 Corrections: (The following items were deleted from the chart) 04:10 04:10 Sutures were applied at 11/08/2023. sp4 sp4
--- NOTE | 2023-11-15 04:24 | ER ---
Nurse's Notes [facility] Name: Clifford Ramos Age: 48 yrs Sex: Male : 1975 Arrival Date: 11/15/2023 Time: 04:02 Bed IW1 Private MD: Diagnosis: Laceration without foreign body of left hand;Encounter for removal of sutures Presentation: 11/14 04:19 Chief complaint: Patient states: suture removal to left hand. Coronavirus screen: lg3 Client denies travel out of the [place] in the last 14 days. At this time, the client does not indicate any symptoms associated with coronavirus-19. Ebola Screen: No symptoms or risks identified at this time. Initial Sepsis Screen: Does the patient meet any 2 criteria? No. Patient's initial sepsis screen is negative. Does the patient have a suspected source of infection? No. Patient's initial sepsis screen is negative. Risk Assessment: Do you want to hurt yourself or someone else? Patient reports no desire to harm self or others. Onset of symptoms is unknown. 04:19 Method Of Arrival: Ambulatory lg3 04:19 Acuity: JOANNA 5 lg3 Triage Assessment: 04:20 General: Appears in no apparent distress. comfortable, Behavior is calm, cooperative. lg3 Pain: Denies pain. EENT: No deficits noted. No signs and/or symptoms were reported regarding the EENT system. Neuro: No deficits noted. Law Agitation-Sedation Scale (RASS): 0 - Alert and Calm Level of Consciousness is awake, alert, obeys commands, Oriented to person, place, time, situation. Cardiovascular: No deficits noted. Denies chest pain, shortness of breath, Capillary refill < 3 seconds Clubbing of nail beds is absent JVD is absent Patient's skin is warm and dry. Respiratory: No deficits noted. Airway is patent Respiratory effort is even, unlabored, Respiratory pattern is regular, symmetrical. GI: No deficits noted. No signs and/or symptoms were reported involving the gastrointestinal system. : No deficits noted. No signs and/or symptoms were reported regarding the genitourinary system. Derm: Skin is intact, is healthy with good turgor, Skin is dry, Skin is normal, Skin temperature is warm clean laceration with sutures in place to top of left hand noted. Musculoskeletal: No deficits noted. No signs and/or symptoms reported regarding the musculoskeletal system. Circulation, motion, and sensation intact. Range of motion: intact in all extremities. Historical: - Allergies: 04:20 No Known Allergies; lg3 - Home Meds: 04:20 None [Active]; lg3 - PMHx: 04:20 None; lg3 - PSHx: 04:20 back; shoulder; hand; lg3 - Immunization history:: Adult Immunizations up to date, Client reports receiving the 2nd dose of the Covid vaccine, Flu vaccine is not up to date. - Social history:: Smoking status: Patient reports the use of cigarette tobacco products, smokes one-half pack cigarettes per day, Patient uses alcohol, on a daily basis. - Family history:: not pertinent. Screenin:22 [facility] ED Fall Risk Assessment (Adult) History of falling in the last 3 months, lg3 including since admission No falls in past 3 months (0 pts). Abuse screen: Denies threats or abuse. Denies injuries from another. Nutritional screening: No deficits noted. Tuberculosis screening: No symptoms or risk factors identified. Assessment: 04:22 General: see triage assessment. lg3 Vital Signs: 04:19 BP 139 / 82; Pulse 97; Resp 17 S; Temp 97.9(TE); Pulse Ox 98% on R/A; Weight 81.65 kg lg3 (R); Height 5 ft. 9 in. (R); Pain 0/10; 04:19 Body Mass Index 26.58 (81.65 kg, 175.26 cm) lg3 04:19 Pain Scale: Adult lg3 ED Course: 04:04 Patient arrived in ED. jj6 04:09 Chacorta Ramos MD is Attending Physician. sp4 04:19 Laney Peterson RN is Primary Nurse. lg3 04:20 Triage completed. lg3 04:20 Arm band placed on right wrist. lg3 04:22 Patient has correct armband on for positive identification. lg3 04:22 No provider procedures requiring assistance completed. Patient did not have IV access lg3 during this emergency room visit. Recheck. Removal of Removed sutures from dorsum of left hand Suture site is well healed Patient tolerated well. Administered Medications: No medications were administered Medication: 04:22 VIS not applicable for this client. lg3 Outcome: 04:17 Discharge ordered by . sp4 04:22 Discharged to home ambulatory, lg3 04:22 Condition: stable 04:22 Discharge instructions given to patient, Instructed on discharge instructions, follow up and referral plans. Demonstrated understanding of instructions, follow-up care, 04:23 Patient left the ED. lg3 Signatures: Laney Peterson RN RN lg3 Sandi Hernández jj6 Chacorta Ramos MD MD sp4
[2023-11-15 04:31] VITALS: BP 139/82; TEMP 97.9; O2SAT 98
== END ==
LOC: ER 04:02
DX: Z48.02 Encounter for removal of sutures (principal)

== ENCOUNTER 2024-07-02 08:28 | Emergency (ER) | payer BC ==
[2024-07-02] MEDS ORDERED: KETOROLAC 30 MG/ML INJ ONE (08:56)
[2024-07-02] MEDS ORDERED: NA CHLORIDE 0.9% 1,000 ML ONE (08:56)
[2024-07-02 09:30] LABS: Specific Gravity 1.016 (1.005-1.030); Urine Bilirubin NEGATIVE (Negative); Urine Blood Negative (Negative); Urine Clarity Clear (Clear); Urine Color Light-Yellow (Yellow); Urine Glucose NEGATIVE (Negative); Urine Ketones NEGATIVE (Negative); Urine Microscopic Reflex YN NO UMIC; Urine Nitrite NEGATIVE (Negative); Urine Protein NEGATIVE (Negative); Urine Urobilinogen Normal (Normal); Urine pH 6.5 (5.0-7.0)
[2024-07-02 09:31] LABS: Absolute Basophils 0.1 K/uL (0-0.5); Absolute Eosinophils 0.1 K/uL (0-0.5); Absolute Lymphocytes (CBC) 0.6 K/uL (0.7-4.9); Absolute Neutrophil 8.5 K/uL (1.8-8.0); Basophils % 0.6 % (0-1.3); Eosinophils % 0.8 % (0-4.4); Hematocrit 36.3 % (39.6-49.0); Hemoglobin 12.6 g/dL (13.6-17.9); Lymphocytes % 6.2 % (15.3-44.8); MCH 33.4 pg (27.0-35.0); MCHC 34.8 g/dL (32.0-36.0); MPV 6.7 fL (7.6-11.3); Monocytes % 9.6 % (3.3-12.3); Neutrophils % 82.8 % (41.7-73.7); Nucleated Red Blood Cells % 0.1 % (0-0); Platelets 247 thou/uL (152-406); RBC Red Blood Cell Count 3.78 M/uL (4.33-5.43); Red Cell Distribution Width 13.9 % (12.1-15.2)
[2024-07-02 09:44] LABS: Albumin 3.5 g/dL (3.4-5.0); Albumin/Globulin Ratio 0.8 (1.1-1.8); Anion Gap 6.8 mEq/L (5.0-15.0); Bilirubin Total 0.4 mg/dL (0.2-1.0); Globulin 4.2 g/dL (2.3-3.5); Potassium 3.8 mEq/L (3.5-5.1); Protein, Total 7.7 g/dL (6.4-8.2)
--- NOTE | 2024-07-02 10:14 | RAD REPORT ---
EXAMINATION: CT ABDOMEN AND PELVIS WITH CONTRAST CLINICAL INDICATION: Abdominal pain TECHNIQUE: CT abdomen and pelvis was performed, after the administration of 100 cc Isovue-300.. Sagit rubens and coronal reconstructions were obtained. One or more of the following dose reduction techniques were used: Automated exposure control, adjustment of the mA and kV according to patient si ze, and iterative reconstruction. Unless otherwise specified, incidental findings do not require dedicated imaging follow-up. [id number]. Oral contrast was not given which limits evaluation of bowel and appendix. COMPARISON: none FINDINGS: Fatty liver. Trace left pleural effusion. Small hiatal hernia The spleen, pancreas, adrenals and kidneys unremarkable. Bladder wall thickening. Normal appendix. Tiny umbilical hernia. Mild right inguinal lymphadenopathy. Several left inguinal lymph nodes short axis less than 1 cm.. Th e largest lymph node lies within the right inguinal region and measures 3 x 1.5 cm. No evidence of diverticulitis. : IMPRESSION: Mild right inguinal lymphadenopathy.. This may be reactive in nature. As neoplasm can have a similar appearance it is recommended that patient have a follow-up ultrasound in 4 weeks to assess stability/resolution. Bladder wall thickening may be secondary to incomplete distention or inflammation.
--- NOTE | 2024-07-02 10:23 | EDPHYS ---
Physician Documentation [facility] Name: Clifford Ramos Age: 49 yrs Sex: Male : 1975 Arrival Date: 07/02/2024 Time: 08:28 Bed 6 Private MD: ED Physician mOar Elizabeth HPI: 07/02 09:59 This 49 yrs old Male presents to ER via Ambulatory with complaints of right side pain. rt 09:59 Patient presents with right upper quadrant pain radiating to the back for the past 2 to rt 3 days. The patient is associated nausea and vomiting. Denies any urinary symptoms, diarrhea, constipation. States that the pain is intermittent. Denies other acute complaints, symptoms are moderate in severity, no other aggravating or alleviating factors.. Historical: - Allergies: 08:43 No Known Allergies; ss - Home Meds: :43 None [Active]; ss - PMHx: 08:43 None; ss - PSHx: 08:43 back; hand; Shoulder; ss - Immunization history:: Client reports receiving the 2nd dose of the Covid vaccine. - Infectious Disease History:: Denies. - Social history:: Smoking status: Patient denies any tobacco usage or history of. - Family history:: not pertinent. ROS: 09:59 Constitutional: Negative for fever, chills, and weight loss, Cardiovascular: Negative rt for chest pain, palpitations, and edema, Respiratory: Negative for shortness of breath, cough, wheezing, and pleuritic chest pain, MS/Extremity: Negative for injury and deformity, Skin: Negative for injury, rash, and discoloration, Neuro: Negative for headache, weakness, numbness, tingling, and seizure, 09:59 Abdomen/GI: Positive for abdominal pain, nausea and vomiting, 09:59 Back: Positive for flank pain, Negative for injury or acute deformity, Exam: 09:59 Constitutional: This is a well developed, well nourished patient who is awake, alert, rt and in no acute distress. Head/Face: Normocephalic, atraumatic. Chest/axilla: Normal chest wall appearance and motion. Nontender with no deformity. No lesions are appreciated. Cardiovascular: Regular rate and rhythm with a normal S1 and S2. No gallops, murmurs, or rubs. Normal PMI, no JVD. No pulse deficits. Respiratory: Lungs have equal breath sounds bilaterally, clear to auscultation and percussion. No rales, rhonchi or wheezes noted. No increased work of breathing, no retractions or nasal flaring. Skin: Warm, dry with normal turgor. Normal color with no rashes, no lesions, and no evidence of cellulitis. MS/ Extremity: Pulses equal, no cyanosis. Neurovascular intact. Full, normal range of motion. Neuro: Awake and alert, GCS 15, oriented to person, place, time, and situation. Cranial nerves II-XII grossly intact. Motor strength 5/5 in all extremities. Sensory grossly intact. Cerebellar exam normal. Normal gait. 09:59 Abdomen/GI: Tenderness to the right upper quadrant without rebound, guarding, distention, Vital Signs: 08:41 BP 149 / 95; Pulse 67; Resp 18; Temp 98.2(TE); Pulse Ox 98% ; Weight 79.38 kg; Height 5 ss ft. 9 in. ; Pain 9/10; 10:42 BP 132 / 72; Pulse 71; Resp 16; Pulse Ox 100% on R/A; mb9 08:41 Body Mass Index 25.84 (79.38 kg, 175.26 cm) ss 08:41 Pain Scale: Adult ss MDM: 08:47 Medical Screening Exam initiated rt 10:49 Differential Diagnosis Musculoskeletal pain, cholecystitis, cholelithiasis, kidney rt stone, UTI. Data reviewed: vital signs, nurses notes, lab test result(s), radiologic studies. I considered the following discharge prescriptions or medication management in the emergency department Medications were administered in the Emergency Department. See MAR. Independent interpretation of the following test(s) in the Emergency Department CT Scan: My interpretation is No ureteral stones scanned images. Test considered but Not performed: Ultrasound Labs unremarkable except for mildly elevated AST, likely due to alcohol use, low suspicion for gallbladder pathology, ultrasound not indicated. Counseling: I had a detailed discussion with the patient and/or guardian regarding the historical points, exam findings, and any diagnostic results supporting the discharge/admit diagnosis, lab results, radiology results, the need for outpatient follow up, to return to the emergency department if symptoms worsen or persist or if there are any questions or concerns that arise at home, Inform patient of findings of lymphadenopathy and I given printed out results, instructed to follow-up with primary care for further management.. 07/02 08:53 Order name: CBC with Diff; Complete Time: 09:49 rt 07/02 08:53 Order name: CMP; Complete Time: 09:49 rt 07/02 08:53 Order name: Lipase; Complete Time: 09:49 rt 07/02 08:53 Order name: Urinalysis w/ reflexes; Complete Time: 09:49 rt 07/02 08:53 Order name: CT Abd/Pelvis - IV Contrast Only; Complete Time: 10:14 rt 07/02 08:53 Order name: IV Saline Lock; Complete Time: 09:03 rt 07/02 08:53 Order name: Labs collected and sent; Complete Time: 09:03 rt Administered Medications: 09:23 Drug: TORadol - Ketorolac IVP 15 mg IVP once Route: IVP; Site: right forearm; mb9 10:43 Follow up: Response: No adverse reaction mb9 09:23 Drug: NS 0.9% IV 1000 ml IV at 1 bolus Per protocol; to be given as a bolus over 60 mb9 minutes Route: IV; Rate: 1 bolus; Site: right forearm; 10:43 Follow up: Response: No adverse reaction; IV Status: Completed infusion mb9 Disposition Summary: 07/02/24 10:23 Discharge Ordered Notes: Location: Home rt Problem: new rt Symptoms: have improved rt Condition: Stable rt Diagnosis - Right flank pain rt - Right inguinal lymphadenopathy rt Followup: rt - With: Private Physician - When: 2 - 3 days - Reason: Discharge Instructions: - Discharge Summary Sheet rt - Flank Pain, Adult rt - Lymphadenopathy rt Forms: - Medication Reconciliation Form rt - Antibiotic Education rt - Prescription Opioid Use rt - Patient Portal Instructions rt - Leadership Thank You Letter rt Signatures: Dispatcher [employer] Marilyn Oscar RN RN ss Vira Camacho RN RN mb9 Omar Elizabeth MD MD rt
--- NOTE | 2024-07-02 10:23 | ER ---
Nurse's Notes [facility] Name: Clifford Ramos Age: 49 yrs Sex: Male : 1975 Arrival Date: 07/02/2024 Time: 08:28 Bed 6 Private MD: Diagnosis: Right flank pain;Right inguinal lymphadenopathy Presentation: 07/02 08:41 Chief complaint: Patient states: R sided abd pain and bloating with N/V x 2 days. ss Coronavirus screen: Client denies travel out of the [place] in the last 14 days. Ebola Screen: Patient denies exposure to infectious person. Patient denies travel to an Ebola-affected area in the 21 days before illness onset. Initial Sepsis Screen: Does the patient meet any 2 criteria? No. Patient's initial sepsis screen is negative. Does the patient have a suspected source of infection? No. Patient's initial sepsis screen is negative. Risk Assessment: Do you want to hurt yourself or someone else? Patient reports no desire to harm self or others. Onset of symptoms was July 01, 2024. 08:41 Method Of Arrival: Ambulatory 08:41 Acuity: JOANNA 3 ss Historical: - Allergies: 08:43 No Known Allergies; ss - Home Meds: 08:43 None [Active]; ss - PMHx: 08:43 None; ss - PSHx: 08:43 back; hand; Shoulder; ss - Immunization history:: Client reports receiving the 2nd dose of the Covid vaccine. - Infectious Disease History:: Denies. - Social history:: Smoking status: Patient denies any tobacco usage or history of. - Family history:: not pertinent. Screenin:00 [facility] ED Fall Risk Assessment (Adult) History of falling in the last 3 months, mb9 including since admission No falls in past 3 months (0 pts) Confusion or Disorientation No (0 pts) Intoxicated or Sedated No (0 pts) Impaired Gait No (0 pts) Mobility Assist Device Used No (0 pt) Altered Elimination No (0 pt) Score/Fall Risk Level 0 - 2 = Low Risk Oriented to surroundings, Maintained a safe environment, Educated pt \T\ family on fall prevention, incl call for assistance when getting out of bed. Abuse screen: Denies threats or abuse. Nutritional screening: No deficits noted. Tuberculosis screening: No symptoms or risk factors identified. Assessment: 08:59 General: Appears in no apparent distress. Behavior is calm, cooperative. Pain: mb9 Complains of pain in abdomen Pain radiates to right flank Quality of pain is described as throbbing, Pain began 2-3 days ago. Is intermittent. Neuro: Law Agitation-Sedation Scale (RASS): 0 - Alert and Calm Level of Consciousness is awake, alert, obeys commands, Oriented to person, place, time, situation, Appropriate for age. Cardiovascular: Denies chest pain, Patient's skin is warm and dry. Respiratory: Airway is patent Respiratory effort is even, unlabored, Respiratory pattern is regular, symmetrical. GI: Abdomen is round non-distended, Bowel sounds present X 4 quads. Abd is soft Abdomen is tender to palpation in right upper quadrant Patient currently denies nausea, vomiting. : Denies burning with urination, inability to void, urinary frequency. EENT: No signs and/or symptoms were reported regarding the EENT system. Derm: Skin is pink, warm \T\ dry. Musculoskeletal: Range of motion: intact in all extremities. 10:42 Reassessment: No changes from previously documented assessment. Patient and/or family mb9 updated on plan of care and expected duration. Pain level reassessed. Patient is alert, oriented x 3, equal unlabored respirations, skin warm/dry/pink. Vital Signs: 08:41 BP 149 / 95; Pulse 67; Resp 18; Temp 98.2(TE); Pulse Ox 98% ; Weight 79.38 kg; Height 5 ss ft. 9 in. ; Pain 9/10; 10:42 BP 132 / 72; Pulse 71; Resp 16; Pulse Ox 100% on R/A; mb9 08:41 Body Mass Index 25.84 (79.38 kg, 175.26 cm) ss 08:41 Pain Scale: Adult ss ED Course: 08:33 Patient arrived in ED. im 08:37 Vira Camacho RN is Primary Nurse. mb9 08:37 Arm band placed on. mb9 08:43 Triage completed. ss 08:45 Omar Elizabeth MD is Attending Physician. rt 09:00 Placed in gown. Bed in low position. Call light in reach. Side rails up X 1. Provided mb9 Education on: press call light if needing anything. Client placed on continuous cardiac and pulse oximetry monitoring. NIBP monitoring applied. 09:00 No provider procedures requiring assistance completed. mb9 09:23 Initial lab(s) drawn, by me, sent to lab. Inserted saline lock: 20 gauge in right mb9 forearm, using aseptic technique. Blood collected. Flushed with 10 mL NS. : CBC with Diff Sent. mb9 09:23 CMP Sent. mb9 09:23 Lipase Sent. mb9 09:23 Urinalysis w/ reflexes Sent. mb9 09:[address] via wheelchair. mb9 10:02 CT Abd/Pelvis - IV Contrast Only In Process Unspecified. EDMS 10:42 IV discontinued, intact, bleeding controlled, No redness/swelling at site. Pressure mb9 dressing applied. Administered Medications: : Drug: TORadol - Ketorolac IVP 15 mg IVP once Route: IVP; Site: right forearm; mb9 10:43 Follow up: Response: No adverse reaction mb9 09:23 Drug: NS 0.9% IV 1000 ml IV at 1 bolus Per protocol; to be given as a bolus over 60 mb9 minutes Route: IV; Rate: 1 bolus; Site: right forearm; 10:43 Follow up: Response: No adverse reaction; IV Status: Completed infusion mb9 Medication: 09:00 VIS not applicable for this client. mb9 Outcome: 10:23 Discharge ordered by . rt 10:42 Discharged to home ambulatory, mb9 10:42 Condition: stable 10:42 Discharge instructions given to patient, Instructed on discharge instructions, follow up and referral plans. Demonstrated understanding of instructions, follow-up care, 10:43 Patient left the ED. mb9 Signatures: Dispatcher [employer] EDMS Marilyn Markham, RN RN Vira Mahmood RN RN Omar Laurent MD MD rt Abimbola Ramos
[2024-07-02 10:52] VITALS: TEMP 98.2
[2024-07-02 10:58] VITALS: BP 132/72; O2SAT 100
== END 2024-07-02 10:43 | disposition home or self-care (01) ==
LOC: ER 08:28
DX: R10.11 Right upper quadrant pain (principal); R59.1 Generalized enlarged lymph nodes
CPT/HCPCS: 85025; 36415; 81003; 83690; 80053; 74177; Q9967; J7030; 96361; 96374; 99285

== ENCOUNTER → 2024-08-14 | Day surgery (SDC) | payer BC ==
--- NOTE | 2024-08-14 10:24 | RAD REPORT ---
PROCEDURE: ULTRASOUND GUIDED BIOPSY Pre-procedure diagnosis: Enlarged right inguinal lymph node Post-procedure diagnosis: Same as above. CLINICAL INDICATION: R59.0 COMPLICATIONS: No immediate complications. IMPRESSION: Percutaneous ultrasound-guided Core needle biopsy of right inguinal lymph node PROCEDURE DETAILS: Consent: Informed consent for the procedure including risks, benefits and alternatives was obtained a nd time-out was performed prior to the procedure. Preparation: The site was prepared and draped using all elements of maximal sterile barrier technique including sterile gloves, sterile gown, cap, mask, large sterile sheet, sterile ultrasound probe cover as needed, hand hygiene and cutaneous antisepsis with 2% chlorhexidine. Sedation: None Biopsy: Local anesthesia was administered. Under ultrasound guidance, the 17-gauge biopsy needle was advanced to the target and biopsy was performed. The biopsy needle was removed and a sterile dressing was applied. [id number]. Number of specimens: 3 On-site biopsy touch preparation: None. Additional sampling description: None. Preliminary assessment of sample adequacy: Not applicable. Tract embolization: None. Post-biopsy imaging findings: No immediate complications seen. Contrast used: None. Estimated blood loss: Less than 10 mL.
== END ==
LOC: FNA 09:06
PROVIDERS: ATTEND Surgery
DX: R59.0 Localized enlarged lymph nodes (principal)
CPT/HCPCS: 38505; 76942; 88305